=== PATIENT | male | born 1945 | race Caucasian/White ===

== ENCOUNTER 2018-10-18 05:19 | Day surgery (SDC) | payer MEDICARE ==
[~2018-10-18] VITALS: Ht 172.7 cm; Wt 90.7 kg
[2018-10-18] VITALS (15 sets, daily range): BP systolic 106–152; BP diastolic 63–94
[2018-10-18] MEDS ORDERED: diphenhydrAMINE 25mg capsule PO PRN (05:45)
[2018-10-18] MEDS ORDERED: LORazepam 0.5 MG tablet PO PRN (05:45)
[2018-10-18] MEDS ORDERED: normal saline 1,000 ML IV SCH (05:45)
[2018-10-18] MEDS ORDERED: LIDOcaine/PRILOcaine 5gm cream TP ONE (05:45)
[2018-10-18 05:56] LABS: BASOPHILS # (AUTO) 0.1 X10'3 (0-0.2); BASOPHILS % (AUTO) 0.8 % (0-1); EOSINOPHILS # (AUTO) 0.2 X10'3 (0-0.9); EOSINOPHILS % (AUTO) 2.4 % (0-6); HEMATOCRIT 45.3 % (42.0-52.0); HEMOGLOBIN 15.4 g/dl (14.0-17.9); LYMPHOCYTES % (AUTO) 22.3 % (21-51); MEAN CORPUSCULAR HEMOGLOBIN 29.7 PG (27.0-31.0); MEAN CORPUSCULAR HGB CONC 34.1 g/dL (33.0-36.5); MEAN PLATELET VOLUME 8.2 FL (7.4-10.4); MONOCYTES # (AUTO) 0.8 X10'3 (0-0.9); MONOCYTES % (AUTO) 8.2 % (2-12); NEUTROPHILS # (AUTO) 6.1 X10'3 (1.8-7.7); NEUTROPHILS % (AUTO) 66.3 % (42-75); PLATELET COUNT 202 X10'3 (140-440); RED BLOOD COUNT 5.21 X10'6 (4.70-6.10); RED CELL DISTRIBUTION WIDTH 13.8 % (11.5-14.5); WHITE BLOOD COUNT 9.2 X10'3 (4.5-11.0)
[2018-10-18] MEDS ORDERED: nitroGLYCERIN-Tridil 50MG/D5W 250 ML IV ONE (06:04)
[2018-10-18] MEDS ORDERED: verapamil 2.5 mg/ml inj IV ONE (06:04)
[2018-10-18] MEDS ORDERED: midazolam 2 mg/2 ml injection ONE ×2 (06:04→06:38)
[2018-10-18] MEDS ORDERED: heparin 1,000unit/ml 10ml vial 10 ML ONE ×2 (06:05→06:59)
[2018-10-18] MEDS ORDERED: iohexol 350MG/ML 100ml bottle IV ONE ×2 (06:05→06:51)
[2018-10-18] MEDS ORDERED: LIDOcaine 1% 30ml preserv. free vial ONE (06:05)
[2018-10-18] MEDS ORDERED: fentaNYL/PF 50MCG/1 ML 2ML syringe ONE ×2 (06:05→06:38)
[2018-10-18 06:09] LABS: ANION GAP 9 (8-16); BLOOD UREA NITROGEN 13 MG/DL (7-18); BUN/CREATININE RATIO 11.7 (5.4-32.0); CALCIUM 8.6 MG/DL (8.5-10.1); CHLORIDE 104 MMOL/L (99-107); CREATININE 1.11 MG/DL (0.60-1.10); GLUCOSE 311 MG/DL (70-104); POTASSIUM 3.5 MMOL/L (3.5-5.1); SODIUM 141 MMOL/L (135-145); TOTAL CARBON DIOXIDE 28.3 MMOL/L (24-32); eGFR 65 ML/MIN
[2018-10-18] MEDS ORDERED: METO25TA6 PO (06:11)
[2018-10-18] MEDS ORDERED: ASPI81TA52 PO (06:11)
[2018-10-18] MEDS ORDERED: ROSU40TA PO (06:11)
[2018-10-18] MEDS ORDERED: SERT100T10 PO (06:11)
[2018-10-18] MEDS ORDERED: LISI10TA4 PO (06:11)
[2018-10-18] MEDS ORDERED: OXYC-511 PO (06:11)
[2018-10-18 06:19] LABS: PARTIAL THROMBOPLASTIN TIME 25 SECONDS (22-32)
[2018-10-18] MEDS ORDERED: ticagrelor 90mg tablet ONE (07:10)
== END 2018-10-18 11:15 | disposition home or self-care (01) ==
LOC: SSTAY O 05:19
PROVIDERS: ATTEND Internal Medicine Interventional Cardiology
DX: I25.10 Atherosclerotic heart disease of native coronary artery without angina pectoris (principal); I10 Essential (primary) hypertension; E78.49 Other hyperlipidemia; E11.9 Type 2 diabetes mellitus without complications; Z79.899 Other long term (current) drug therapy; Z95.5 Presence of coronary angioplasty implant and graft; Z79.82 Long term (current) use of aspirin
CPT/HCPCS: 36415; 80048; 82948; 85025; 85610; 85730; 93005; 93458; 99152; 99153; C1725; C1769; C1874; C1894; C9600; J1644; J2001; J2250; J3010; J7030; Q0163; Q9967; A4620; A6258; C1760; J3490